=== PATIENT | male | born 1985 | race Caucasian/White ===

== ENCOUNTER → 2023-12-09 | Outpatient (CLI) | payer SELFPAY | LOC: M WUC 15:47 | PROVIDERS: ATTEND Physician Assistant | DX: S60.946A Unspecified superficial injury of right little finger, initial encounter (principal); Y93.9 Activity, unspecified; Y92.9 Unspecified place or not applicable; Y99.9 Unspecified external cause status; X58.XXXA Exposure to other specified factors, initial encounter ==